=== PATIENT | male | born 1980 | race Two or more races ===

== ENCOUNTER 2023-12-04 07:06 | Day surgery (SDC) | payer OTHER ==
[2023-11-28 08:33] LABS: PH,URINE 5.5 (5.0-8.0); URINE APPEARANCE Clear; URINE BILIRRUBIN Negative (NEGATIVE); URINE BLOOD Negative; URINE COLOR Yellow; URINE GLUCOSE Negative (NEGATIVE); URINE KETONE Negative (NEGATIVE); URINE LEUKOCYTE Negative; URINE NITRATE Negative; URINE PROTEIN Negative (NEGATIVE); URINE UROBILINOGEN 0.2 E.U./dl
[2023-11-28 08:38] LABS: URINE RBC 8.8 uL (0.0-20.8); URINE WBC 3.2 uL (0.0-23.2)
[2023-11-28 08:52] LABS: HEMATOCRIT 45.2 % (39.0-48.0); HEMOGLOBIN 15.7 g/dL (13-16.00); MEAN CORPUSCULAR HEMOGLOBIN 30.5 pg (27.00-32.0); MEAN CORPUSCULAR HGB CONC 34.7 g/dl (32.0-36.0); PLATELET COUNT 264 K/uL (150-450); RED BLOOD COUNT 5.14 M/uL (4.00-6.00); RED CELL DISTRIBUTION WIDTH 13.3 % (11.5-14.5)
[2023-11-28 09:12] LABS: URINE EPITHELIAL CELLS 1.2 uL (0.0-38.8)
[2023-11-28 09:18] LABS: PARTIAL THROMBOPLASTIN TIME 29.2 SECONDS (22.0-34.0); PROTHROMBIN TIME 10.5 SECONDS (9.0-11.5)
[2023-11-28 09:23] LABS: ALBUMIN 4.2 gm/dL (3.4-5.0); BILIRUBIN TOTAL 0.52 mg/dL (0.3-1.2); CALCIUM 9.2 mg/dL (8.5-10.1); CREATININE SERUM 0.98 mg/dL (0.70-1.30); GFR 83.09; GLOBULINA 3.4 G/DL (2.4-3.5); POTASSIUM 4.13 mEq/L (3.5-5.1); TOTAL PROTEIN 7.6 gm/dL (6.4-8.2)
[~2023-12-04] VITALS: Ht 188 cm; Wt 122.5 kg
[~2023-12-04 07:06] MED LIST: COZAAR100 MG PO
[2023-12-04] MEDS ORDERED: CEFAZOLIN SODIUM 1,000 MG VIAL ONE (09:54)
[2023-12-04] MEDS ORDERED: SUGAMMADEX SODIUM 200 MG/2 ML VIAL IV ONE (12:15)
== END 2023-12-04 15:30 | disposition home or self-care (01) ==
LOC: CIR.AMB 07:06
PROVIDERS: ATTEND Surgery
DX: K42.0 Umbilical hernia with obstruction, without gangrene (principal); K43.6 Other and unspecified ventral hernia with obstruction, without gangrene; Z88.6 Allergy status to analgesic agent; I10 Essential (primary) hypertension
CPT/HCPCS: 49594; C1781

== ENCOUNTER 2024-12-24 08:37 | Outpatient (CLI) | payer OTHER | END 2024-12-24 08:53 | disposition home or self-care (01) | LOC: MRI 08:37 | DX: M54.17 Radiculopathy, lumbosacral region (principal); M51.379 Other intervertebral disc degeneration, lumbosacral region without mention of lumbar back pain or lower extremity pain | CPT/HCPCS: 72148 ==